=== PATIENT | male | born 1980 | race Caucasian/White ===

== ENCOUNTER 2024-01-16 16:33 | Emergency (ER) | payer SELFPAY | END 2024-01-16 16:58 | disposition left against medical advice (07) | LOC: MW.ED 16:33 | DX: Z53.21 Procedure and treatment not carried out due to patient leaving prior to being seen by health care provider (principal) ==

== ENCOUNTER 2025-01-31 16:15 | Emergency (ER) | payer OTHER ==
[2025-01-31] MEDS: diphenhydrAMINE 50 MG/ML SDV IVPUSH ONE (16:41)
[2025-01-31] MEDS: methylPREDNISolone Sodium Succinate 125 MG/2 ML SDV IVPUSH ONE (16:41)
== END 2025-01-31 17:54 | disposition home or self-care (01) ==
LOC: MW.ED 16:15
DX: T63.441A Toxic effect of venom of bees, accidental (unintentional), initial encounter (principal); Z75.3 Unavailability and inaccessibility of health-care facilities; Z91.030 Bee allergy status
CPT/HCPCS: 96361; 96374; 96375; 99283; J1200; J1308; J2919; J7030